=== PATIENT | female | born 1995 | race Caucasian/White ===

== ENCOUNTER → 2024-05-18 06:47 | Outpatient (REF) | payer OTHER, SELFPAY | LOC: PNTC 06:47 | PROVIDERS: ATTENDING PHYSICIAN Obstetrics & Gynecology | DX: Z34.82 Encounter for supervision of other normal pregnancy, second trimester (principal) | CPT/HCPCS: 76805 ==

== ENCOUNTER → 2024-08-30 11:22 | Outpatient (REF) | payer OTHER, SELFPAY | LOC: PNTC 11:22 | PROVIDERS: ATTENDING PHYSICIAN Obstetrics & Gynecology | DX: O36.8199 Decreased fetal movements, unspecified trimester, other fetus (principal) | CPT/HCPCS: 59025; 76815 ==

== ENCOUNTER 2024-10-04 07:30 | Inpatient (IN) | payer OTHER, SELFPAY ==
[2024-10-04 07:35] VITALS: BP 92/73; BMI 32.0
[2024-10-04] MEDS: LR 1000 IV ×2 (09:00→10:50)
[2024-10-04] MEDS: PITOCIN 30 UNITS/NSS 500 ML IV (09:20)
[2024-10-04 09:34] LABS: % Basophils 0.6 % (0-2); % Eosinophils 0.6 % (0-6); % Immature Granulocytes 1.6 % (0-0.5); % Lymphocytes 14.3 % (20.5-51.1); % Monocytes 5.2 % (1.7-9.3); % Neutrophils 77.7 % (42.2-75.2); Absolute Basophils 0.1 10^3/uL (0-0.2); Absolute Eosinophils 0.1 10^3/uL (0-0.7); Absolute Immature Granulocytes 0.2 10^3/uL (0-0.05); Absolute Lymphocytes 1.8 10^3/uL (1.2-3.4); Absolute Monocytes 0.6 10^3/uL (0.1-0.6); Absolute Neutrophils 9.5 10^3/uL (1.4-6.5); Hematocrit 36.8 % (37.0-47.0); Hemoglobin 12.3 g/dL (12.0-16.0); Mean Corp Hgb Conc. 33.4 g/dL (33.0-37.0); Mean Corpuscular Hgb 28.7 pg (27.0-31.0); Mean Corpuscular Volume 85.8 fL (81.0-99.0); Mean Platelet Volume 12.5 fL (7.4-10.4); Nucleated Red Blood Cells % 0 %; Platelet Count 159 10^3/uL (130-400); Red Blood Cell Count 4.29 10^6/uL (4.20-5.40); Red Cell Dist. Width 15.2 % (11.5-14.5); White Blood Cell Count 12.2 10^3/uL (4.8-10.8)
[2024-10-04] MEDS: FENTANYL/BUPIVACAINE 100 EPIDURAL (14:17)
[2024-10-04] MEDS: SUBLIMAZE 100 MCG EPIDURAL (14:17)
[2024-10-04] MEDS: NON-FORMULARY ITEM 1000 MG RECTAL (22:28)
[2024-10-04] MEDS: MOTRIN 600 MG PO (23:06)
[2024-10-05] MEDS: TYLENOL 650 MG PO ×3 (04:05→19:26)
[2024-10-05 05:00] LABS: Hematocrit 34.1 % (37.0-47.0); Hemoglobin 11.5 g/dL (12.0-16.0)
[2024-10-05] MEDS: MOTRIN 600 MG PO ×3 (06:47→19:27)
[2024-10-05] MEDS: NON-FORMULARY ITEM 2 TABLET PO (06:48)
[2024-10-05 15:54] LABS: Syphilis/T. pallidum Ab Reflex Negative (Negative)
[2024-10-05] MEDS: NON-FORMULARY ITEM 1000 MG RECTAL (19:27)
[2024-10-06] MEDS: NON-FORMULARY ITEM 2 TABLET PO (06:30)
[2024-10-06] MEDS: MOTRIN 600 MG PO ×2 (08:03→14:34)
[2024-10-06] MEDS: TYLENOL 650 MG PO ×2 (08:03→11:57)
== END 2024-10-06 16:01 | disposition home or self-care (01) | DRG 807 ==
LOC: LDRP 07:30
PROVIDERS: ADMITTING PHYSICIAN Obstetrics & Gynecology; FAMILY PHYSICIAN Family Medicine
PROC: 10E0XZZ Delivery of Products of Conception, External Approach (ICD-10-PCS; 2024-10-04)
PROC: 10907ZC Drainage of Amniotic Fluid, Therapeutic from Products of Conception, Via Natural or Artificial Opening (ICD-10-PCS; 2024-10-04)
PROC: 3E033VJ Introduction of Other Hormone into Peripheral Vein, Percutaneous Approach (ICD-10-PCS; 2024-10-04)
PROC: 0KQM0ZZ Repair Perineum Muscle, Open Approach (ICD-10-PCS; 2024-10-04)
DX: O48.1 Prolonged pregnancy (principal); Z37.0 Single live birth; Z3A.40 40 weeks gestation of pregnancy; O70.1 Second degree perineal laceration during delivery
CPT/HCPCS: 85014; 85018; 85025; 86780; 86850; 86900; 86901